=== PATIENT | male | born 1950 | race Caucasian/White ===

== ENCOUNTER 2016-11-18 13:06 | Emergency (ER) | payer MEDICARE, BC ==
[~2016-11-18] VITALS: Ht 193 cm; Wt 140.0 kg
[2016-11-18 13:08] VITALS: BP 136/66; PULSE 64; RESP 14; TEMP 97.9; O2SAT 94
--- NOTE | 2016-11-18 15:10 | PD ---
HPI Chief Complaint: Foreign Body Time Seen by Provider: 14:58 Travel History International Travel<30 days: No Contact w/Intl Traveler<30days: No Traveled to known affect area: No History of Present Illness HPI 66-year-old male presents to the emergency Department with complaint of a foreign body in his left year. He says his hearing aid ear pieces stuck in his ear. He went to urgent care and was told to come to the emergency department as it was too close to the TM. He denies pain. Denies ear drainage. Denies change in hearing. Has no other medical complaints. Symptoms are mild in severity. No known allergies. No other modifying factors or associated signs and symptoms. PFSH Past Medical History Hx Anticoagulant Therapy: Yes Social History Tobacco Use: No Allergies-Medications (Allergen,Severity, Reaction): Coded Allergies: No Known Allergies (Unverified , 11/18/16) Reported Meds & Prescriptions Reported Meds & Active Scripts Active No Active Prescriptions or Reported Medications Review of Systems Except as stated in HPI: all other systems reviewed are Neg Physical Exam Narrative GENERAL: Well-nourished, well-developed male patient, in no acute distress SKIN: Warm and dry. HEAD: Atraumatic. Normocephalic. EYES: Pupils equal and round. No scleral icterus. No injection or drainage. ENT: Mucosa pink and moist. Airway patent. EARS: Bilateral pinnae and external canals appear within normal limits. Right tympanic membranes without erythema, dullness or perforation. Unable to visualize left tympanic membrane secondary to foreign body: Tympanic membrane without erythema, edema, dullness, perforation after foreign body removal. NECK: Trachea midline. CARDIOVASCULAR: Regular rate. RESPIRATORY: No accessory muscle use. GASTROINTESTINAL: Rounded. MUSCULOSKELETAL: No obvious deformities. No clubbing. No cyanosis. No edema. NEUROLOGICAL: Awake and alert. Oriented 3. No obvious cranial nerve deficits. Motor grossly within normal limits. Normal speech. PSYCHIATRIC: Appropriate mood and affect; insight and judgment normal. Data Data Last Documented VS Vital Signs Date Time Temp Pulse Resp B/P (MAP) Pulse Ox O2 Delivery O2 Flow Rate FiO2 11/18/16 13:08 97.9 64 14 136/66 (89) 94 Orders Orders Ed Discharge Order (11/18/16 15:10) MDM Medical Decision Making Medical Screen Exam Complete: Yes Emergency Medical Condition: Yes Medical Record Reviewed: Yes Differential Diagnosis Ear foreign body, cerumen impaction, medical clearance Narrative Course 66-year-old male with a foreign body in his left ear. See my procedure note for foreign body removal. Patient tolerated well. Instructed patient to follow up with primary care provider. Patient verbalizes understanding and agreement with treatment plan. Patient is medically cleared and stable for discharge. Discussed reasons to return to the emergency department. Patient agrees with treatment plan. The patients vital signs are stable and the patient is stable for outpatient follow-up and treatment. Patient discharged home, stable and in no acute distress. Procedures Procedure Narrative Ear foreign body removal: Alligator forceps were used to remove the foreign body from the left ear canal. Patient tolerated well. Diagnosis Primary Impression: Foreign body in left ear Qualified Codes: T16.2XXA - Foreign body in left ear, initial encounter Referrals: Primary Care Physician Patient Instructions: Ear Foreign Body (ED), General Instructions Additional Instructions: Follow-up with primary care provider Follow-up with ENT as needed Return to the emergency department immediately for worsening of symptoms Med/Other Pt SpecificInfo: No Change to Meds, No Meds Exist/No RX given Scripts No Active Prescriptions or Reported Meds Disposition: 01 DISCHARGE HOME Condition: Stable Leela Riddle Nov 18, 2016 15:10
== END 2016-11-18 15:40 | disposition home or self-care (01) ==
LOC: NEPK 13:06
DX: T16.2XXA Foreign body in left ear, initial encounter (principal); X58.XXXA Exposure to other specified factors, initial encounter
CPT/HCPCS: 69200